=== PATIENT | female | born 1955 | race Caucasian/White ===

== ENCOUNTER 2018-03-30 01:09 | Emergency (ER) | payer MEDICAID ==
[~2018-03-30] VITALS: Ht 165.1 cm; Wt 72.6 kg
[2018-03-30 01:24] VITALS: Ht 165.1 cm; Wt 72.6 kg
[2018-03-30 05:39] VITALS: BP 126/52
== END 2018-03-30 05:39 | disposition home or self-care (01) ==
LOC: ED 01:09
DX: T38.3X1A Poisoning by insulin and oral hypoglycemic [antidiabetic] drugs, accidental (unintentional), initial encounter (principal); E78.00 Pure hypercholesterolemia, unspecified; E11.9 Type 2 diabetes mellitus without complications; Y92.89 Other specified places as the place of occurrence of the external cause
CPT/HCPCS: 82962